=== PATIENT | male | born 1960 | race African-American/Black ===

== ENCOUNTER 2018-12-18 10:33 | Inpatient (IN) | payer MEDICARE ==
[~2018-12-18] VITALS: Ht 172.7 cm; Wt 77.3 kg
[2018-12-18 11:42] LABS: BASOPHILS % 1.2 % (0.0-2.0); EOSINOPHILS % 3.3 % (0.0-5.0); HEMATOCRIT. 23.6 % (42.0-52.0); HEMOGLOBIN. 7.2 g/dL (14.0-18.0); LYMPHOCYTES % 15.6 % (20.0-50.0); MEAN CORPUSCULAR HEMOGLOBIN 17.6 pg (28.0-32.0); MEAN PLATELET VOLUME 9.8 fl (7.4-10.4); MONOCYTES % 8.8 % (2.0-8.0); NEUTROPHILS % 71.1 % (40.0-76.0); PLATELET 225 x1000/uL (130-400); RED BLOOD CELL COUNT 4.08 mill/uL (4.7-6.1)
[2018-12-18 11:48] LABS: CHLORIDE 104 mEq/L (98-107)
[2018-12-18 12:03] LABS: PLATELET ESTIMATE NORMAL
[2018-12-18] MEDS ORDERED: ASPIRIN 81MG TABLET PO ONE (13:15)
[2018-12-18 20:30] VITALS: BP 113/71
[2018-12-18 22:00] VITALS: BP 116/56
[2018-12-18] MEDS ORDERED: DEXTROSE 50% WATER 50ML SYRINGE IV PRN (22:00)
[2018-12-18] MEDS ORDERED: ACETAMINOPHEN 325MG TABLET PO PRN (22:00)
[2018-12-18] MEDS ORDERED: ONDANSETRON HCL 4MG/2ML INJ IV PRN (22:00)
[2018-12-18] MEDS ORDERED: CLONIDINE 0.1MG TABLET PO PRN (22:00)
[2018-12-18] MEDS ORDERED: DIPHENHYDRAMINE 50MG/ML VIAL IV PRN (22:00)
[2018-12-18] MEDS ORDERED: IPRATROPIUM/ALBUTEROL 0.5-3(2.5)MG/3ML NEB INH PRN (22:00)
[2018-12-18] MEDS: SODIUM CHLORIDE 0.9% INJ 3ML FLUSH IVF SCH (22:53)
[2018-12-18] MEDS: ATORVASTATIN CALCIUM 20MG TABLET PO SCH (22:53)
[2018-12-18 23:53] LABS: TOTAL IRON BINDING CAPACITY 420 ug/dL (250-450)
[2018-12-19] VITALS: BP 102/57
[2018-12-19 04:00] VITALS: BP 105/61
[2018-12-19] MEDS: SODIUM CHLORIDE 0.9% INJ 3ML FLUSH IVF SCH ×3 (05:43→21:55)
[2018-12-19] MEDS: BLOOD SUGAR DIAGNOSTIC STRIP TEST SCH ×4 (05:44→21:54)
[2018-12-19] MEDS: INSULIN LISPRO 100 UNITS/ML SUBCUT SCH ×4 (06:26→22:35)
[2018-12-19 08:00] VITALS: BP 103/62
[2018-12-19] MEDS: ENOXAPARIN 40MG/0.4ML SYR SUBCUT SCH (08:41)
[2018-12-19] MEDS ORDERED: ASPIRIN 325MG EC TABLET PO SCH (09:00)
[2018-12-19 12:00] VITALS: BP 110/60
[2018-12-19 16:00] VITALS: BP 113/62
[2018-12-19] MEDS: CLOPIDOGREL 75MG TABLET PO SCH (17:00)
[2018-12-19] MEDS ORDERED: QUET100T33 MT (19:37)
[2018-12-19] MEDS ORDERED: LISI-604 MT (19:37)
[2018-12-19] MEDS ORDERED: NPH,100V SQ ×2 (19:37)
[2018-12-19] MEDS ORDERED: FLUT15.88 BOTHNSTRLS (19:37)
[2018-12-19] MEDS ORDERED: INSU100V3 SUBCUT (19:37)
[2018-12-19] MEDS ORDERED: CARV12.545 MT (19:37)
[2018-12-19] MEDS ORDERED: HYDR25TA MT (19:37)
[2018-12-19] MEDS ORDERED: ATOR40TA70 MT (19:37)
[2018-12-19 20:00] VITALS: BP 105/66
[2018-12-19] MEDS: ATORVASTATIN CALCIUM 20MG TABLET PO SCH (21:55)
[2018-12-20] VITALS: BP 115/66
[2018-12-20 04:00] VITALS: BP 118/71
[2018-12-20] MEDS: SODIUM CHLORIDE 0.9% INJ 3ML FLUSH IVF SCH ×2 (06:31→15:59)
[2018-12-20] MEDS: BLOOD SUGAR DIAGNOSTIC STRIP TEST SCH ×2 (06:34→11:45)
[2018-12-20] MEDS: INSULIN LISPRO 100 UNITS/ML SUBCUT SCH ×2 (06:57→12:02)
[2018-12-20 08:00] VITALS: BP 102/62
[2018-12-20] MEDS: CLOPIDOGREL 75MG TABLET PO SCH (09:07)
[2018-12-20] MEDS: ENOXAPARIN 40MG/0.4ML SYR SUBCUT SCH (09:08)
[2018-12-20 12:00] VITALS: BP 105/65
[2018-12-20 14:15] VITALS: BP 105/65
== END 2018-12-20 15:30 | disposition home health service (06) | DRG 65 ==
LOC: ER 10:44 → 5WST 13:23 → EDBEDREQ 13:25 → EDBEDREQTM 13:25 → ENRESERV 15:23
PROVIDERS: ADMIT Internal Medicine; ATTEND Internal Medicine
DX: I63.9 Cerebral infarction, unspecified (principal); I69.354 Hemiplegia and hemiparesis following cerebral infarction affecting left non-dominant side; N18.9 Chronic kidney disease, unspecified; E11.22 Type 2 diabetes mellitus with diabetic chronic kidney disease; H54.7 Unspecified visual loss; I12.9 Hypertensive chronic kidney disease with stage 1 through stage 4 chronic kidney disease, or unspecified chronic kidney disease; E11.65 Type 2 diabetes mellitus with hyperglycemia; F17.210 Nicotine dependence, cigarettes, uncomplicated; Z79.02 Long term (current) use of antithrombotics/antiplatelets; Z80.1 Family history of malignant neoplasm of trachea, bronchus and lung; Z82.49 Family history of ischemic heart disease and other diseases of the circulatory system
CPT/HCPCS: 36415; 70551; 71045; 80061; 82962; 83036; 83540; 83550; 83880; 84484; 92523; 93005; 93306; 93880; 97162; 97166; 99291; J1200; J1650; J1815